=== PATIENT | male | born 1985 | race Caucasian/White ===

== ENCOUNTER 2018-12-28 01:55 | Emergency (ER) | payer MEDICAID ==
[~2018-12-28] VITALS: Ht 182.9 cm; Wt 72.0 kg
[~2018-12-28 01:55] MED LIST: BEN25 PO; ELIM TOP
[2018-12-28 01:58] VITALS: BP 135/66; PULSE 101; RESP 16; Ht 182.9 cm; Wt 72.0 kg
[2018-12-28] MEDS ORDERED: DEXAMETHASONE 10 MG/ML 1 ML INJ PO ONE (04:00)
[2018-12-28] MEDS ORDERED: DIPHENHYDRAMINE 25 MG CAP PO ONE (04:00)
== END 2018-12-28 04:11 | disposition home or self-care (01) ==
LOC: FTE 01:55
DX: B86 Scabies (principal); Z87.891 Personal history of nicotine dependence
CPT/HCPCS: J1100; Z7610; 99283